=== PATIENT | male | born 2000 | race Caucasian/White ===

== ENCOUNTER 2020-01-01 09:52 | Emergency (ER) | payer OTHER ==
[~2020-01-01] VITALS: Ht 185.4 cm; Wt 70.0 kg
[2020-01-01] MEDS ORDERED: BENZOCAINE AEROSOL SPRAY 20%, 60ML ONE (10:09)
--- NOTE | 2020-01-01 10:11 | NUR ---
PT STILL BLEEDING FROM BACK OF R THROAT. SUCTION PROVIDED TO PT. ERP AT NOW ADMINISTERING HURRICANE SPRAY.
[2020-01-01] MEDS ORDERED: SODIUM CHLORIDE FLUSH 10ML SYR IVF ONE (10:30)
[2020-01-01] MEDS ORDERED: SODIUM CHLORIDE 0.9% 1,000 ML IV ONE (10:34)
--- NOTE | 2020-01-01 10:53 | NUR ---
PT HAS SUCTIONED ABOUT 250ML OF BLOOD SINCE HE ARRIVED IN ED. BLEEDING SLOWING NOW. PT UNDERSTANDS PLAN TO GO TO ER. IV STARTED AND IVF INFUSING.
[2020-01-01 11:02] LABS: BASOPHILS # (AUTO) 0.04 x10^3/uL (0-0.1); BASOPHILS % (AUTO) 1 % (0-1); EOSINOPHILS # (AUTO) 0.19 x10^3/uL (0-0.4); EOSINOPHILS % (AUTO) 3 % (1-7); LYMPHOCYTES # (AUTO) 1.45 x10^3/uL (1-3.4); LYMPHOCYTES % (AUTO) 19 % (22-44); MD NO; MEAN CORPUSCULAR HEMOGLOBIN 28.9 pg (27.5-34.5); MEAN CORPUSCULAR HGB CONC 34.1 g/dL (33.2-36.2); MEAN CORPUSCULAR VOLUME 84.7 fL (81-97); MEAN PLATELET VOLUME 8.1 fL (7.4-10.4); MONOCYTES # (AUTO) 0.72 x10^3/uL (0.2-0.8); MONOCYTES % (AUTO) 10 % (2-9); NEUTROPHILS # (AUTO) 5.18 x10^3/uL (1.8-6.8); NEUTROPHILS % (AUTO) 68 % (42-75); PLATELET COUNT 210 x10^3/uL (130-400); RED BLOOD COUNT 5.37 x10^6/uL (4.38-5.82); RED CELL DISTRIBUTION WIDTH 13.5 % (9.4-14.8)
--- NOTE | 2020-01-01 11:20 | NUR ---
ERP WAS AT BS FOR RECHECK.
[2020-01-01] MEDS ORDERED: ONDANSETRON 2MG/ML, 2ML ONE (12:12)
--- NOTE | 2020-01-01 12:21 | NUR ---
PT VOMITED ABOUT 200ML OF BLOOD IN EMESIS BAG. MEDICATED WITH ZOFRAN PER ORDERS. DR. MONROY AT BS NOW.
[2020-01-01] MEDS ORDERED: SILVER NITRATE STICK TP ONE ×2 (12:27→12:30)
[2020-01-01] MEDS ORDERED: BENZOCAINE 20% SPRAY 0.5ML TP ONE (12:30)
[2020-01-01] MEDS ORDERED: ONDANSETRON 2MG/ML, 2ML IVPush ONE (12:30)
--- NOTE | 2020-01-01 12:43 | NUR ---
ENT MD APPLIED SILVER NITRATE TO PT'S THROAT. WILL RE-ASSESS. PT AMBULATED TO WITHOUT DIFFICULTY.
[2020-01-01 12:44] LABS: INTERNATIONAL NORMALIZED RATIO 1.05 (0.93-1.1); PROTHROMBIN TIME 11.1 Seconds (9.6-11.5)
[2020-01-01 13:45] VITALS: BP 127/83
--- NOTE | 2020-01-01 13:48 | NUR ---
DR. MONROY AT FOR RECHECK AGAIN. TALKING WITH PT'S MOTHER ON PHONE.
--- NOTE | 2020-01-01 14:15 | NUR ---
D/C INSTRUCTIONS & F/U APPT RV'WD WITH PT, HE VERBALIZES UNDERSTANDING. PT AMBULATED OUT OF ED WITHOUT DIFFICULTY, STATES A FRIEND WILL PICK HIM UP.
== END 2020-01-01 14:36 | disposition home or self-care (01) ==
LOC: ED 14:23
DX: R04.1 Hemorrhage from throat (principal)
CPT/HCPCS: 36415; 85025; 85610; 85730; 87081; 87880; 96361; 96374; 99283; J2405; J7030